=== PATIENT | female | born 1990 | race Caucasian/White ===

== ENCOUNTER 2016-11-08 23:06 | Inpatient (IN) | payer BC, MEDICAID ==
[~2016-11-08] VITALS: Ht 165.1 cm; Wt 108.9 kg
[2016-11-08 23:39] VITALS: Ht 165.1 cm; Wt 108.9 kg
[2016-11-08] MEDS ORDERED: FAMOTIDINE 20 MG INJ IV ONE (23:40)
[2016-11-08] MEDS ORDERED: LACT RINGERS 1,000 ML IV SCH (23:40)
[2016-11-08] MEDS ORDERED: CEFAZOLIN 3,000 MG in SODIUM CHLORIDE 0.9% 100 ML IV ONE (23:40)
[2016-11-08] MEDS ORDERED: METOCLOPRAMIDE 10 MG/2 ML VIAL IV PUSH ONE (23:40)
[2016-11-08] MEDS ORDERED: Flu Vaccine Quadrivalent 60 MCG/0.5 ML IM.VACC ONE (23:45)
[2016-11-08] MEDS ORDERED: CEFAZOLIN (LD/OB) 0 ML IV ONE (23:46)
[2016-11-09] VITALS (7 sets, daily range): BP systolic 122–136; RESP 16–24; TEMP 98–98.4
[2016-11-09] MEDS ORDERED: ONDANSETRON 4 MG VIAL IV PRN ×3 (00:05→00:20)
[2016-11-09] MEDS ORDERED: TDaP 0.5 ML VIAL IM.VACC ONE (00:05)
[2016-11-09] MEDS ORDERED: LACT RINGERS 1,000 ML IV SCH (00:05)
[2016-11-09] MEDS ORDERED: MEASLES,MUMPS,RUBELLA VAC SUBQ.VACC ONE (00:05)
[2016-11-09] MEDS ORDERED: BUTORPHANOL 1 MG/ML VIAL IV PRN (00:20)
[2016-11-09] MEDS ORDERED: DIPHENHYDRAMINE 50 MG/ML VIAL IV PRN (00:20)
[2016-11-09] MEDS ORDERED: DILAUDID 1 MG/ML AMP IV PRN (00:20)
[2016-11-09] MEDS ORDERED: MEPERIDINE 25 MG/ML IV PRN (00:20)
[2016-11-09] MEDS ORDERED: MORPHINE 4 MG/ML SYR IV PRN ×2 (00:20)
[2016-11-09] MEDS ORDERED: PROMETHAZINE 25 MG/ML VIAL IV PRN (00:20)
[2016-11-09] MEDS ORDERED: NALOXONE 0.4 MG/ML AMP IV PRN (00:20)
[2016-11-09] MEDS ORDERED: SALINE FLUSH 10 ML FLUSH PRN (00:20)
[2016-11-09] MEDS ORDERED: OXYCODONE 5 MG TAB PO PRN (00:20)
[2016-11-09] MEDS ORDERED: MORPHINE 2 MG/ML SYR IV PRN ×2 (00:20)
[2016-11-09] MEDS: MISOPROSTOL 100 MCG TAB PO SCH ×4 (05:56→23:49)
[2016-11-09] MEDS: KETOROLAC 30 MG/ML VIAL IV SCH ×4 (05:56→23:50)
[2016-11-09] MEDS: SODIUM CHLORIDE 0.9% FLUSH BAG 500 ML IV SCH (06:00)
[2016-11-09] MEDS: OXYTOCIN 15 UNITS/250 ML NS 250 ML IV SCH ×2 (07:29→12:48)
[2016-11-09] MEDS ORDERED: PHENYLEPHRINE 10 MG/ML VIAL IV ONE (07:51)
[2016-11-09] MEDS ORDERED: KETOROLAC 30 MG/ML VIAL IV ONE (07:51)
[2016-11-09] MEDS ORDERED: ONDANSETRON 4 MG VIAL IV PUSH ONE (07:51)
[2016-11-09] MEDS: SALINE FLUSH 10 ML FLUSH SCH ×2 (08:00→23:50)
[2016-11-10] MEDS: Ibuprofen 600 MG TAB PO SCH ×3 (05:13→17:26)
[2016-11-10 05:15] VITALS: BP_SYST 139; RESP 18; TEMP 98.4
[2016-11-10] MEDS: SODIUM CHLORIDE 0.9% FLUSH BAG 500 ML IV SCH (06:00)
[2016-11-10] MEDS ORDERED: OXYCODONE/APAP 5/325 TAB PO PRN (09:15)
[2016-11-10 09:28] VITALS: BP_SYST 142; RESP 20; TEMP 98.5
[2016-11-10] MEDS: SALINE FLUSH 10 ML FLUSH SCH ×2 (10:41→20:00)
[2016-11-10] MEDS: MAG HYDROX 30 ML UDC PO SCH (16:26)
[2016-11-11] MEDS: Ibuprofen 600 MG TAB PO SCH ×3 (00:15→11:45)
[2016-11-11] MEDS: SODIUM CHLORIDE 0.9% FLUSH BAG 500 ML IV SCH (00:17)
[2016-11-11 05:07] VITALS: BP_SYST 122; RESP 16; TEMP 98
[2016-11-11] MEDS: SALINE FLUSH 10 ML FLUSH SCH (08:00)
[2016-11-11] MEDS: MAG HYDROX 30 ML UDC PO SCH ×2 (08:00)
[2016-11-11 09:15] VITALS: TEMP 98
[2016-11-11 09:17] VITALS: BP_SYST 137
[2016-11-11 09:18] VITALS: RESP 24
[2016-11-11 12:12] VITALS: BP_SYST 137; RESP 24; TEMP 98
[2016-11-11] MEDS ORDERED: TDaP 0.5 ML VIAL IM.VACC ONE (12:20)
== END 2016-11-11 13:38 | disposition home or self-care (01) | DRG 766 ==
LOC: LD 23:06 → OB 11-09 04:30
PROVIDERS: ADMIT Obstetrics & Gynecology Reproductive Endocrinology; ATTEND Obstetrics & Gynecology Reproductive Endocrinology
PROC: 10D00Z1 Extraction of Products of Conception, Low, Open Approach (ICD-10-PCS; principal; 2016-11-09)
PROC: 0UT70ZZ Resection of Bilateral Fallopian Tubes, Open Approach (ICD-10-PCS; 2016-11-09)
DX: O34.219 Maternal care for unspecified type scar from previous cesarean delivery (principal); O24.429 Gestational diabetes mellitus in childbirth, unspecified control; N85.8 Other specified noninflammatory disorders of uterus; O99.214 Obesity complicating childbirth; Z3A.39 39 weeks gestation of pregnancy; Z37.0 Single live birth
CPT/HCPCS: 80053; 82803; 85025; 86850; 86900; 86901; 88302